=== PATIENT | male | born 1945 | race Caucasian/White ===

== ENCOUNTER 2017-04-23 16:47 | Emergency (ER) | payer OTHER, MEDICARE, BC ==
--- NOTE | 2017-04-23 17:02 | EDM.PDOC ---
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 Pt fell onto his right shoulder and right buttock discomfort. No N/V/D or any other acute medical issues. BP 156/70 pulse 78 RR 18 Pulse ox 98% on RA temp 36.7 Onset: Today Onset Date: 04/23/17 Onset Time: 14:00 Duration: Hour(s): Location: Reports: Back, Upper Extremity, Right, Lower Extremity, Right Quality: Reports: Ache Severity: Mild Improves with: Reports: Rest Worsens with: Reports: Movement Context: Reports: Trauma (fell at work) Associated Symptoms: Reports: No Other Symptoms Right Shoulder Pain Score (Numeric/FACES): 7 - Related Data Allergies Allergy/AdvReac Type Severity Reaction Status Date / Time dorzolamide HCl [From Cosopt] Allergy Irritabilit Verified 04/23/17 16:59 y timolol maleate [From Cosopt] Allergy Irritabilit Verified 04/23/17 16:59 y Home Meds: Home Meds Hydrocodone/Acetaminophen [Vicodin 5-300 mg Tablet] 1 each PO Q6HR PRN #10 tablet 06/21/13 [Rx] Latanoprost [Latanoprost] 1 drop EYEBOTH DAILY 06/21/13 [History] Aspirin [Ecotrin] 81 mg PO DAILY 03/08/14 [History] Diltiazem HCl [Cardizem LA] 240 mg PO DAILY #30 tab.sr.24h 03/08/14 [Rx] Metoprolol Tartrate [Lopressor] 50 mg PO BID 03/08/14 [History] Rivaroxaban [Xarelto] 20 mg PO DAILY #30 tablet 03/08/14 [Rx] atorvaSTATin [Lipitor] 10 mg PO BEDTIME 03/08/14 [History] metFORMIN [Glucophage] 500 mg PO BID 03/08/14 [History] Social & Family History - Tobacco Use Smoking Status *Q: Never Smoker Second Hand Smoke Exposure: No - Recreational Drug Use Recreational Drug Use: No Review of Systems - Review of Systems Review Of Systems: See Below Constitutional: Reports: No Symptoms Eyes: Reports: No Symptoms Ears: Reports: No Symptoms Nose: Reports: No Symptoms Mouth/Throat: Reports: No Symptoms Respiratory: Reports: No Symptoms Cardiovascular: Reports: No Symptoms GI/Abdominal: Reports: No Symptoms Genitourinary: Reports: No Symptoms Musculoskeletal: Reports: Shoulder Pain, Muscle Pain, Other (hip pain) Skin: Reports: No Symptoms Neurological: Reports: No Symptoms Psychiatric: Reports: No Symptoms ED EXAM, GENERAL - Physical Exam Exam: See Below Exam Limited By: No Limitations General Appearance: Alert, WD/WN, Mild Distress Eye Exam: Bilateral Eye: Normal Inspection Ears: Normal External Exam Ear Exam: Bilateral Ear: Auricle Normal Nose: Normal Inspection, Normal Mucosa Throat/Mouth: Normal Inspection, Normal Lips Head: Atraumatic, Normocephalic Neck: Normal Inspection Respiratory/Chest: No Respiratory Distress, Lungs Clear Cardiovascular: Normal Peripheral Pulses, Regular Rate, Rhythm, No Edema Peripheral Pulses: 1+: Brachial (R) GI/Abdominal: Normal Bowel Sounds, Soft (Male) Exam: Deferred Rectal (Males) Exam: Deferred Back Exam: Normal Inspection, Full Range of Motion Extremities: Normal Inspection, Normal Range of Motion Neurological: Alert, Oriented, CN II-XII Intact, Normal Cognition, Normal Gait, No Motor/Sensory Deficits Psychiatric: Normal Affect Skin Exam: Warm, Dry, Intact, Normal Color, No Rash Lymphatic: No Adenopathy Course - Vital Signs Text/Narrative:: 71 y.o.w.m came to the ED, walking, 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 Pt fell onto his right shoulder and right buttock discomfort. No N/V/D or any other acute medical issues. BP 156/70 pulse 78 RR 18 Pulse ox 98% on RA temp 36.7 PE: Minor R post shoulder discomfort and R hip pain with FROM, ambulates well Imaging: Not indicated Impression: Fall while at work, Shoulder and hip muscle ache. Tx: Motrin Reexam: Improved Plan: D/C with instructions Last Recorded V/S: Last Vital Signs Temp 36.4 C 04/23/17 17:06 Pulse 68 04/23/17 17:06 Resp 18 04/23/17 17:06 BP 156/70 H 04/23/17 17:06 Pulse Ox 100 04/23/17 17:06 Departure - Departure Time of Disposition: 17:02 Disposition: Home, Self-Care 01 Condition: Good Clinical Impression: Sprain of shoulder, right Qualifiers: Encounter type: initial encounter Shoulder sprain type: unspecified sprain Qualified Code(s): S43.401A - Unspecified sprain of right shoulder joint, initial encounter Sprain of right hip Qualifiers: Encounter type: initial encounter Qualified Code(s): S73.101A - Unspecified sprain of right hip, initial encounter - Discharge Information Referrals: Guzman Anand MD [Primary Care Provider] - Forms: ED Department Discharge, ED Return to Work/School Form Additional Instructions: Please apply ice to the affected area, please take motrin for pain with food, please f/u, come back if your symptoms get worse.
== END 2017-04-23 17:15 | disposition home or self-care (01) ==
LOC: FB.ED 16:47
DX: S43.401A Unspecified sprain of right shoulder joint, initial encounter (principal); S73.101A Unspecified sprain of right hip, initial encounter; Z88.8 Allergy status to other drugs, medicaments and biological substances; Z79.82 Long term (current) use of aspirin; Z79.899 Other long term (current) drug therapy; V69.3XXA Occupant (driver) (passenger) of heavy transport vehicle injured in unspecified nontraffic accident, initial encounter; Y99.0 Civilian activity done for income or pay
CPT/HCPCS: 99283

== ENCOUNTER 2017-09-17 19:59 | Observation (INO) | payer MEDICARE, BC ==
[2017-09-17] MEDS ORDERED: Sodium Chloride 0.9% 10 ML Syringe FLUSH PRN (20:22)
--- NOTE | 2017-09-17 20:23 | EDM.PDOC ---
ED HPI GENERAL MEDICAL PROBLEM - General Chief Complaint: Lower Extremity Injury/Pain Stated Complaint: GENERAL Time Seen by Provider: 09/17/17 20:10 Source of Information: Reports: Patient, Family History Limitations: Reports: No Limitations - History of Present Illness INITIAL COMMENTS - FREE TEXT/NARRATIVE: Brandin comes into [facility] ED with a 48 hour hx of progressive pain and swelling to the L lower leg. Sxs began near the ankle, and reddness with swelling has progressed proximally involving the calve, medial thigh to just below the groin. He is not aware of any fever, but did experience chills and some sweating today. He has been traveling, and decided to return to the [facility] for assessment. He has taken no meds. - Related Data Allergies Allergy/AdvReac Type Severity Reaction Status Date / Time dorzolamide HCl [From Cosopt] Allergy Irritabilit Verified 09/17/17 20:44 y timolol maleate [From Cosopt] Allergy Irritabilit Verified 09/17/17 20:44 y Home Meds: Home Meds Latanoprost 1 drop EYEBOTH DAILY 06/21/13 [History] Aspirin [Ecotrin] 81 mg PO DAILY 03/08/14 [History] Metoprolol Tartrate [Lopressor] 50 mg PO BID 03/08/14 [History] atorvaSTATin [Lipitor] 10 mg PO BEDTIME 03/08/14 [History] metFORMIN [Glucophage] 500 mg PO DAILY 03/08/14 [History] Past Medical History HEENT History: Reports: Glaucoma Cardiovascular History: Reports: Bypass, High Cholesterol, Hypertension Endocrine/Metabolic History: Reports: Diabetes, Type II Social & Family History - Caffeine Use Caffeine Use: Reports: Coffee Review of Systems - Review of Systems Review Of Systems: See Below Constitutional: Reports: Chills Eyes: Reports: No Symptoms Ears: Reports: No Symptoms Nose: Reports: No Symptoms Mouth/Throat: Reports: No Symptoms Respiratory: Reports: No Symptoms Cardiovascular: Reports: No Symptoms GI/Abdominal: Reports: No Symptoms Genitourinary: Reports: No Symptoms Musculoskeletal: Reports: Leg Pain (left) Skin: Reports: Rash (minor abrasions of left lower leg), Erythema (left leg) Neurological: Reports: No Symptoms Psychiatric: Reports: No Symptoms ED EXAM, GENERAL - Physical Exam Exam: See Below Exam Limited By: No Limitations General Appearance: Alert, WD/WN, No Apparent Distress Eye Exam: Bilateral Eye: EOMI, Normal Inspection, PERRL Ears: Normal External Exam Nose: Normal Inspection Throat/Mouth: Normal Inspection, Normal Oropharynx Head: Normocephalic Neck: Normal Inspection, Supple, Non-Tender Respiratory/Chest: Lungs Clear, Normal Breath Sounds Cardiovascular: Normal Peripheral Pulses, Regular Rate, Rhythm, No Edema, No Murmur GI/Abdominal: Normal Bowel Sounds, Soft, Non-Tender, No Organomegaly, No Distention, No Mass (Male) Exam: No Hernia Rectal (Males) Exam: Deferred Back Exam: Normal Inspection Extremities: Normal Range of Motion, No Pedal Edema, Leg Pain (following course of affected lymphantics) Neurological: Alert, Oriented, CN II-XII Intact, Normal Cognition, Normal Gait, No Motor/Sensory Deficits Psychiatric: Normal Affect, Normal Mood Skin Exam: Warm, Dry, Intact, Erythema (lymphangitic vessel involvement from just above the L ankle to just below the groin), Increased Warmth, Lymphangitis (left leg) Lymphatic: No Adenopathy Course - Vital Signs Text/Narrative:: Following assessment, screening labs and 2 BC were obtained. An IV was started in the RUE, and NS infusion was started. Rocephin 2 gm IV was administered. Labs noted: Hgb 14.9 gm, WBC 9800, plts normal for age; CMP noted non FBS 291 mg %, CRP 18.7; Lactic acid 2.6. He will be admitted for observation. Last Recorded V/S: Last Vital Signs Temp 36.8 C 09/17/17 20:00 Pulse 94 09/17/17 20:00 Resp 19 09/17/17 20:00 BP 130/69 09/17/17 20:00 Pulse Ox 94 L 09/17/17 20:00 - Orders/Labs/Meds Orders: Active Orders 24 hr Category Date Time Status CULTURE BLOOD [BC] Urgent Lab 09/17/17 20:30 Received CULTURE BLOOD [BC] Urgent Lab 09/17/17 20:40 Received Sodium Chloride 0.9% [Normal Saline] 1,000 ml Med 09/17/17 20:30 Active IV ASDIRECTED Sodium Chloride 0.9% [Saline Flush] Med 09/17/17 20:22 Active 10 ml FLUSH ASDIRECTED PRN Blood Culture x2 Reflex Set [OM.PC] Urgent Oth 09/17/17 20:22 Ordered Peripheral IV Insertion Adult [OM.PC] Routine Oth 09/17/17 20:22 Ordered Medication Orders Sodium Chloride (Normal Saline) 1,000 mls @ 500 mls/hr IV ASDIRECTED GLADYS Last Admin: 09/17/17 20:30 Dose: 500 mls/hr Sodium Chloride (Saline Flush) 10 ml FLUSH ASDIRECTED PRN PRN Reason: Keep Vein Open Last Admin: 09/17/17 21:20 Dose: 10 ml Labs: Laboratory Tests 09/17/17 09/17/17 09/17/17 Range/Units 20:40 20:40 20:40 WBC 9.8 (4.5-12.0) X10-3/uL RBC 4.66 (4.30-5.75) x10(6)uL Hgb 14.9 D (11.5-15.5) g/dL Hct 43.0 (30.0-51.3) % MCV 92.4 (80-96) fL MCH 32.0 (27.7-33.6) pg MCHC 34.6 (32.2-35.4) g/dL RDW 12.9 (11.5-15.5) % Plt Count 164 (125-369) X10(3)uL MPV 8.3 (7.4-10.4) fL Neut % (Auto) 73.9 (46-82) % Lymph % (Auto) 15.5 (13-37) % Humphreys % (Auto) 8.8 (4-12) % Eos % (Auto) 1 (1.0-5.0) % Baso % (Auto) 0 (0-2) % Neut # (Auto) 7.3 (1.6-8.3) # Lymph # (Auto) 1.5 (0.6-5.0) # Humphreys # (Auto) 0.9 (0.0-1.3) # Eos # (Auto) 0.1 (0.0-0.8) # Baso # (Auto) 0.0 (0.0-0.2) # Sodium 136 (135-145) mmol/L Potassium 3.8 (3.5-5.3) mmol/L Chloride 101 (100-110) mmol/L Carbon Dioxide 25 (21-32) mmol/L BUN 16 (7-18) mg/dL Creatinine 1.1 (0.70-1.30) mg/dL Est Cr Clr Drug Dosing TNP Estimated GFR (MDRD) > 60 (>60) BUN/Creatinine Ratio 14.5 (9-20) Glucose 291 H (80-116) mg/dL Lactic Acid 2.6 H (0.4-2.2) mmol/L Calcium 9.4 (8.6-10.2) mg/dL C-Reactive Protein (0.5-0.9) mg/dL 09/17/17 Range/Units 20:40 WBC (4.5-12.0) X10-3/uL RBC (4.30-5.75) x10(6)uL Hgb (11.5-15.5) g/dL Hct (30.0-51.3) % MCV (80-96) fL MCH (27.7-33.6) pg MCHC (32.2-35.4) g/dL RDW (11.5-15.5) % Plt Count (125-369) X10(3)uL MPV (7.4-10.4) fL Neut % (Auto) (46-82) % Lymph % (Auto) (13-37) % Humphreys % (Auto) (4-12) % Eos % (Auto) (1.0-5.0) % Baso % (Auto) (0-2) % Neut # (Auto) (1.6-8.3) # Lymph # (Auto) (0.6-5.0) # Humphreys # (Auto) (0.0-1.3) # Eos # (Auto) (0.0-0.8) # Baso # (Auto) (0.0-0.2) # Sodium (135-145) mmol/L Potassium (3.5-5.3) mmol/L Chloride (100-110) mmol/L Carbon Dioxide (21-32) mmol/L BUN (7-18) mg/dL Creatinine (0.70-1.30) mg/dL Est Cr Clr Drug Dosing Estimated GFR (MDRD) (>60) BUN/Creatinine Ratio (9-20) Glucose (80-116) mg/dL Lactic Acid (0.4-2.2) mmol/L Calcium (8.6-10.2) mg/dL C-Reactive Protein 18.7 H* (0.5-0.9) mg/dL Meds: Medications Generic Name Dose Route Start Last Admin Trade Name Dominga PRN Reason Stop Dose Admin Sodium Chloride 1,000 mls @ 500 mls/hr 09/17/17 20:30 09/17/17 20:30 Normal Saline IV 500 mls/hr ASDIRECTED GLADYS Administration Sodium Chloride 10 ml 09/17/17 20:22 09/17/17 21:20 Saline Flush FLUSH 10 ml ASDIRECTED PRN Administration Keep Vein Open Discontinued Medications Generic Name Dose Route Start Last Admin Trade Name Freq PRN Reason Stop Dose Admin Ceftriaxone Sodium 2 gm/ 100 mls @ 200 mls/hr 09/17/17 20:52 09/17/17 21:11 Sodium Chloride IVPUSH 09/17/17 21:21 200 mls/hr ONETIME ONE Administration Departure - Departure Time of Disposition: 21:45 Disposition: Refer to Observation Condition: Fair Clinical Impression: Acute lymphangitis of left lower limb - Discharge Information *PRESCRIPTION DRUG MONITORING PROGRAM REVIEWED*: Not Applicable *COPY OF PRESCRIPTION DRUG MONITORING REPORT IN PATIENT LEONEL: Not Applicable Referrals: Guzman Anand MD [Primary Care Provider] - Forms: ED Department Discharge - Problem List & Annotations (1) Acute lymphangitis of left lower limb SNOMED Code(s): 0233302, 473900360 Code(s): L03.126 - ACUTE LYMPHANGITIS OF LEFT LOWER LIMB Status: Acute Current Visit: Yes Annotation/Comment:: Admit to Observation, cool moist packs to LL Leg, oral analgesics if needed, hydration, hospitalist to see in am. - Problem List Review Problem List Initiated/Reviewed/Updated: Yes - My Orders Last 24 Hours: My Active Orders 09/17/17 20:22 Sodium Chloride 0.9% [Saline Flush] 10 ml FLUSH ASDIRECTED PRN Blood Culture x2 Reflex Set [OM.PC] Urgent Peripheral IV Insertion Adult [OM.PC] Routine 09/17/17 20:30 CULTURE BLOOD [BC] Urgent Sodium Chloride 0.9% [Normal Saline] 1,000 ml IV ASDIRECTED 09/17/17 20:40 CULTURE BLOOD [BC] Urgent - Assessment/Plan Last 24 Hours: My Active Orders 09/17/17 20:22 Sodium Chloride 0.9% [Saline Flush] 10 ml FLUSH ASDIRECTED PRN Blood Culture x2 Reflex Set [OM.PC] Urgent Peripheral IV Insertion Adult [OM.PC] Routine 09/17/17 20:30 CULTURE BLOOD [BC] Urgent Sodium Chloride 0.9% [Normal Saline] 1,000 ml IV ASDIRECTED 09/17/17 20:40 CULTURE BLOOD [BC] Urgent Plan: Admit to Observation.
[2017-09-17] MEDS ORDERED: Sodium Chloride 0.9% 1,000 ML IV SCH (20:30)
[2017-09-17] MEDS ORDERED: cefTRIAXone 2 GM in Sodium Chloride 0.9% 100 ML IVPUSH ONE (20:52)
[2017-09-17] MEDS: Sodium Chloride 0.9% 1,000 ML IV SCH (23:26)
[2017-09-18] MEDS: Sodium Chloride 0.9% 1,000 ML IV SCH (06:06)
--- NOTE | 2017-09-18 09:01 | PCM.HP ---
H&P History of Present Illness - General Date of Service: 09/18/17 Admit Problem/Dx: Admission Diagnosis/Problem Admission Diagnosis/Problem Acute lymphangitis - History of Present Illness Initial Comments - Free Text/Narative: Meet Was admitted because of left leg redness, starting at the ankle going to the thigh.Going on for 48h She had mild stiffness of the ankle with minimal swelling. Minimal pain. He has CAD stable, type 2 diabetes well controlled, and he does not smoke or drink. Works with the ambulance service. He denies fever chills chest pain or shortness of breath. left leg Pain Score (Numeric/FACES): 2 - Related Data Allergies/Adverse Reactions: Allergies Allergy/AdvReac Type Severity Reaction Status Date / Time dorzolamide HCl [From Cosopt] Allergy Irritabilit Verified 09/17/17 20:44 y timolol maleate [From Cosopt] Allergy Irritabilit Verified 09/17/17 20:44 y Home Medications: Home Meds Latanoprost 1 drop EYEBOTH DAILY 06/21/13 [History] Aspirin [Ecotrin] 81 mg PO DAILY 03/08/14 [History] Metoprolol Tartrate [Lopressor] 50 mg PO BID 03/08/14 [History] atorvaSTATin [Lipitor] 10 mg PO BEDTIME 03/08/14 [History] metFORMIN [Glucophage] 500 mg PO DAILY 03/08/14 [History] Gabapentin [Neurontin] 300 mg PO BEDTIME 09/18/17 [History] Terazosin [Hytrin] 2 mg PO BEDTIME 09/18/17 [History] Past Medical History HEENT History: Reports: Glaucoma Cardiovascular History: Reports: Bypass, High Cholesterol, Hypertension Musculoskeletal History: Reports: Other (See Below) Other Musculoskeletal History: restless leg syndrome. Endocrine/Metabolic History: Reports: Diabetes, Type II Social & Family History - Family History Family Medical History: Noncontributory - Tobacco Use Smoking Status *Q: Never Smoker Second Hand Smoke Exposure: No - Caffeine Use Caffeine Use: Reports: Coffee, Soda - Recreational Drug Use Recreational Drug Use: No H&P Review of Systems - Review of Systems: Review Of Systems: ROS reveals no pertinent complaints other than HPI. Exam - Exam Exam: See Below - Vital Signs Vital Signs: Last Vital Signs Temp 97.7 F 09/18/17 08:00 Pulse 82 09/18/17 08:00 Resp 16 09/18/17 03:19 BP 136/76 09/18/17 08:00 Pulse Ox 96 09/18/17 08:00 Weight: 105.46 kg - Exam General: Alert, Oriented, 4 HEENT: PERRLA, Hearing Intact, Mucosa Moist & [place], Nares Patent, Normal Nasal Septum, Posterior Pharynx Clear, Conjunctiva Clear, EOMI, EACs Clear, TMs Clear Neck: Supple, Trachea Midline, 2 Lungs: Clear to Auscultation, Normal Respiratory Effort Cardiovascular: Systolic Murmur GI/Abdominal Exam: Normal Bowel Sounds, Soft, Non-Tender, No Organomegaly, No Distention, No Abnormal Bruit, No Mass, Pelvis Stable (Male) Exam: Deferred Rectal (Males) Exam: Deferred Back Exam: Normal Inspection, Full Range of Motion, NT Extremities: Redness, Other (Streaking and redness along the veins- saphenous fo left leg). No: Joint Swelling, Darian's Sign, Leg Pain Skin: Warm, Dry, Intact Neurological: Cranial Nerves Intact, Reflexes Equal Bilateral Neuro Extensive - Mental Status: Alert, Oriented x3, Normal Mood/Affect, Normal Cognition Neuro Extensive - Motor, Sensory, Reflexes: CN II-XII Intact, Normal Gait, Normal Reflexes Psychiatric: Alert, Normal Affect, Normal Mood - Patient Data Lab Results Last 24 hrs: Laboratory Results - last 24 hr 09/17/17 09/17/17 09/17/17 Range/Units 20:40 20:40 20:40 WBC 9.8 (4.5-12.0) X10-3/uL RBC 4.66 (4.30-5.75) x10(6)uL Hgb 14.9 D (11.5-15.5) g/dL Hct 43.0 (30.0-51.3) % MCV 92.4 (80-96) fL MCH 32.0 (27.7-33.6) pg MCHC 34.6 (32.2-35.4) g/dL RDW 12.9 (11.5-15.5) % Plt Count 164 (125-369) X10(3)uL MPV 8.3 (7.4-10.4) fL Neut % (Auto) 73.9 (46-82) % Lymph % (Auto) 15.5 (13-37) % [place] % (Auto) 8.8 (4-12) % Eos % (Auto) 1 (1.0-5.0) % Baso % (Auto) 0 (0-2) % Neut # (Auto) 7.3 (1.6-8.3) # Lymph # (Auto) 1.5 (0.6-5.0) # [place] # (Auto) 0.9 (0.0-1.3) # Eos # (Auto) 0.1 (0.0-0.8) # Baso # (Auto) 0.0 (0.0-0.2) # Sodium 136 (135-145) mmol/L Potassium 3.8 (3.5-5.3) mmol/L Chloride 101 (100-110) mmol/L Carbon Dioxide 25 (21-32) mmol/L BUN 16 (7-18) mg/dL Creatinine 1.1 (0.70-1.30) mg/dL Est Cr Clr Drug Dosing TNP Estimated GFR (MDRD) > 60 (>60) BUN/Creatinine Ratio 14.5 (9-20) Glucose 291 H (80-116) mg/dL POC Glucose (80-116) mg/dL Lactic Acid 2.6 H (0.4-2.2) mmol/L Calcium 9.4 (8.6-10.2) mg/dL C-Reactive Protein (0.5-0.9) mg/dL 09/17/17 09/18/17 Range/Units 20:40 08:13 WBC (4.5-12.0) X10-3/uL RBC (4.30-5.75) x10(6)uL Hgb (11.5-15.5) g/dL Hct (30.0-51.3) % MCV (80-96) fL MCH (27.7-33.6) pg MCHC (32.2-35.4) g/dL RDW (11.5-15.5) % Plt Count (125-369) X10(3)uL MPV (7.4-10.4) fL Neut % (Auto) (46-82) % Lymph % (Auto) (13-37) % [place] % (Auto) (4-12) % Eos % (Auto) (1.0-5.0) % Baso % (Auto) (0-2) % Neut # (Auto) (1.6-8.3) # Lymph # (Auto) (0.6-5.0) # Crowley # (Auto) (0.0-1.3) # Eos # (Auto) (0.0-0.8) # Baso # (Auto) (0.0-0.2) # Sodium (135-145) mmol/L Potassium (3.5-5.3) mmol/L Chloride (100-110) mmol/L Carbon Dioxide (21-32) mmol/L BUN (7-18) mg/dL Creatinine (0.70-1.30) mg/dL Est Cr Clr Drug Dosing Estimated GFR (MDRD) (>60) BUN/Creatinine Ratio (9-20) Glucose (80-116) mg/dL POC Glucose 193 H (80-116) mg/dL Lactic Acid (0.4-2.2) mmol/L Calcium (8.6-10.2) mg/dL C-Reactive Protein 18.7 H* (0.5-0.9) mg/dL Result Diagrams: 09/17/17 20:40 09/17/17 20:40 - Problem List (1) Superficial thrombophlebitis SNOMED Code(s): 6959843 ICD Code: I80.9 - PHLEBITIS AND THROMBOPHLEBITIS OF UNSPECIFIED SITE Status : Acute Current Visit: Yes Qualifiers: Superficial thrombophlebitis-Involved body area: lower extremity Laterality : left Qualified Code(s): I80.02 - Phlebitis and thrombophlebitis of superficial vessels of left lower extremity (2) Diabetes type 2, controlled SNOMED Code(s): 93118468 ICD Code: E11.9 - TYPE 2 DIABETES MELLITUS WITHOUT COMPLICATIONS Status: Acute Current Visit: Yes Qualifiers: Diabetes mellitus complication status: with unspecified complications (3) CAD (coronary artery disease) SNOMED Code(s): 22596156 ICD Code: I25.10 - ATHSCL HEART DISEASE OF [place] CORONARY ARTERY W/O ANG PCTRS Status: Chronic Current Visit: Yes Qualifiers: Coronary Disease-Associated Artery/Lesion type: bypass graft Associated angina: without angina Problem List Initiated/Reviewed/Updated: Yes Orders Last 24hrs: Active Orders 24 hr Category Date Time Status Antiembolic Devices [RC] 00,08,16 Care 09/17/17 21:50 Active Blood Glucose Check, Bedside [RC] BIDMEALS Care 09/18/17 08:05 Active Pulse Oximetry [RC] PRN Care 09/17/17 21:49 Active VTE/DVT Education [RC] 08 Care 09/17/17 21:50 Active Vital Signs [RC] 00,04,08,12,16,20 Care 09/17/17 21:49 Active Consistent Carbohydrate Diet [DIET] Diet 09/18/17 Breakfast Active CULTURE BLOOD [BC] Urgent Lab 09/17/17 20:30 Received CULTURE BLOOD [BC] Urgent Lab 09/17/17 20:40 Received Sodium Chloride 0.9% [Normal Saline] 1,000 ml Med 09/17/17 20:30 Stop Req IV ASDIRECTED Sodium Chloride 0.9% [Normal Saline] 1,000 ml Med 09/17/17 23:15 Active IV ASDIRECTED Sodium Chloride 0.9% [Saline Flush] Med 09/17/17 20:22 Active 10 ml FLUSH ASDIRECTED PRN Blood Culture x2 Reflex Set [OM.PC] Urgent Oth 09/17/17 20:22 Ordered DVT/VTE Prophylaxis Reflex [OM.PC] Per Unit Routine Oth 09/17/17 21:49 Ordered Peripheral IV Insertion Adult [OM.PC] Routine Oth 09/17/17 20:22 Ordered Resuscitation Status Routine Resus Stat 09/17/17 21:48 Ordered Medication Orders Sodium Chloride (Normal Saline) 1,000 mls @ 500 mls/hr IV ASDIRECTED GLADYS Last Admin: 09/17/17 20:30 Dose: 500 mls/hr Sodium Chloride (Normal Saline) 1,000 mls @ 150 mls/hr IV ASDIRECTED GLADYS Last Admin: 09/18/17 06:06 Dose: 150 mls/hr Infusion: 09/18/17 06:06 Dose: 150 mls/hr Admin: 09/17/17 23:26 Dose: 150 mls/hr Sodium Chloride (Saline Flush) 10 ml FLUSH ASDIRECTED PRN PRN Reason: Keep Vein Open Last Admin: 09/17/17 21:20 Dose: 10 ml Assessment/Plan Comment:: I think the patient has some phlebitis. We'll treat him with warm compress, compression stockings elevation and supportive therapy. I'll obtain an ultrasound of the DVT if available today or on an ambulatory basis tomorrow
[2017-09-18] MEDS ORDERED: Metoprolol Tartrate 25 MG Tab PO SCH (09:15)
[2017-09-18] MEDS ORDERED: metFORMIN 500 MG Tab PO SCH (09:15)
[2017-09-18] MEDS ORDERED: atorvaSTATin 10 MG Tab PO SCH (21:00)
[2017-09-18] MEDS ORDERED: Gabapentin 300 MG Cap PO SCH (21:00)
[2017-09-19] MEDS ORDERED: Latanoprost 0.005% Ophth Soln 2.5 ML Bottle EYEBOTH SCH (09:00)
[2017-09-19] MEDS ORDERED: Aspirin 81 MG Tab.EC PO SCH (09:00)
--- NOTE | 2017-09-20 08:25 | PN ---
DATE SEEN: 09/18/2017 ADDENDUM: We were unable to get an ultrasound to rule out DVT; however, the patient has improved and has had no fever. No significant signs of infection. My take is that I will discharge him home. To continue warm compresses, elevation, and to have an ultrasound of the lower extremities in the morning. No need for oral antibiotics. He should follow up with his PCP within the week. Return to the ER or to the hospital or to the clinic, if he has any worsening symptoms, pain, swelling, shortness of breath, fever, or chills. /[id number] ANTWAN/HERVE
== END 2017-09-18 10:28 | disposition home or self-care (01) ==
LOC: FB.ED 19:59 → FB.MS 21:46
PROVIDERS: ADMIT Family Medicine; ATTEND Family Medicine
DX: L03.126 Acute lymphangitis of left lower limb (principal); I25.10 Atherosclerotic heart disease of native coronary artery without angina pectoris; E11.9 Type 2 diabetes mellitus without complications; G25.81 Restless legs syndrome; Z88.8 Allergy status to other drugs, medicaments and biological substances; Z79.82 Long term (current) use of aspirin; Z79.84 Long term (current) use of oral hypoglycemic drugs; Z79.899 Other long term (current) drug therapy
CPT/HCPCS: 36415; 80048; 82962; 83605; 85025; 86140; 87040; 96361; 96365; 99284; G0378; J0696; J7030; J7050